=== PATIENT | male | born 1985 | race Hispanic/Latino ===

== ENCOUNTER 2016-04-17 01:27 | Emergency (ER) | payer SELFPAY ==
[2016-04-17 02:23] LABS: Hematocrit 51.7 % (35.5-45.6); Hemoglobin 17.7 gm/dl (11.8-15.2); Mean Corpuscular HGB Conc 34 % (32-34); Mean Corpuscular Hemoglobin 31 pg (28-32); Mean Corpuscular Volume 90 fl (84-94); Platelet Count 383 K/mm3 (140-440); Red Blood Count 5.75 M/mm3 (3.65-5.03); White Blood Count 7.8 K/mm3 (4.5-11.0)
[2016-04-17 02:35] LABS: Anion Gap 18 mmol/L; Blood Urea Nitrogen 8 mg/dL (9-20); Calcium 9.2 mg/dL (8.4-10.2); Carbon Dioxide 29 mmol/L (22-30); Chloride 99.2 mmol/L (98-107); Glucose 112 mg/dL (75-100); Potassium 4.3 mmol/L (3.6-5.0); Sodium 142 mmol/L (137-145)
[2016-04-17 02:42] LABS: Urine Drugs of Abuse Note Disclamer
[2016-04-17 02:51] LABS: Bilirubin,Urine NEG (Negative); Blood,Urine NEG (Negative); Ketones,Urine NEG (Negative); Leukocyte Esterase,Urine NEG (Negative); Mucus,Urine FEW /HPF; Nitrite,Urine NEG (Negative); Protein,Urine <15 mg/dL mg/dL (Negative); Urobilinogen,Urine < 2.0 mg/dL (<2.0); WBC,Urine < 1.0 /HPF (0.0-6.0)
[2016-04-17 04:52] LABS: Basophils % (Manual) 0 % (0.0-1.8); Blastocytes % (Manual) 0 %; Diff Status Complete; Platelet Estimate Consistent w Auto; RBC Morphology Normal
[2016-04-17] MEDS ORDERED: ALUM-MAG HYDROX-SIMETH 200-200-20MG/5ML PO ONE (10:51)
[2016-04-17] MEDS ORDERED: VALIUM IV ONE (10:51)
[2016-04-17] MEDS ORDERED: PEPCID IV ONE (10:51)
[2016-04-17] MEDS ORDERED: ZOFRAN IV ONE (10:51)
--- NOTE | 2016-04-17 10:52 | Emergency Department Report ---
ED General Adult HPI - General Chief complaint: Psych Stated complaint: ETOH Time Seen by Provider: 04/17/16 10:42 Source: patient, family, RN notes reviewed, old records reviewed Mode of arrival: Ambulatory Limitations: No Limitations - History of Present Illness Initial comments: This is a 31-year-old male, previously unknown to me. Apparently has a past medical history of chronic pain. Presents to the ER complaining of malaise and fatigue. He reports that he typically does not consume a lot of alcohol, but he reports that he drank a lot of alcohol this weekend. He did not fall. He did not hit his head. He complains of epigastric abdominal discomfort, nausea and vomiting and fatigue. The abdominal discomfort does not radiate to the back , arms or neck. He did not fall. He did not hit his head. He reports that he feels panicky and jittery. He is not homicidal. He is not suicidal. He reports that besides this weekend, he has not consumed alcohol for over a year. -: Gradual Location: abdomen Severity scale (0 -10): 5 Quality: aching Consistency: constant Improves with: rest Worsens with: eating Associated Symptoms: malaise, nausea/vomiting, weakness - Related Data Previous Rx's Medication Instructions Recorded Last Taken Type Famotidine [Pepcid] 20 mg PO QDAY #30 tablet 04/17/16 Unknown Rx Ondansetron [Zofran Odt] 4 mg PO QID PRN #20 tab.rapdis 04/17/16 Unknown Rx chlordiazePOXIDE [Librium] 25 mg PO Q8H PRN #10 capsule 04/17/16 Unknown Rx Allergies Allergy/AdvReac Type Severity Reaction Status Date / Time No Known Allergies Allergy Verified 04/17/16 01:54 ED Review of Systems ROS: Stated complaint: ETOH Other details as noted in HPI Constitutional: denies: fever Eyes: denies: vision change ENT: denies: epistaxis Respiratory: denies: cough Cardiovascular: denies: chest pain Gastrointestinal: abdominal pain Musculoskeletal: back pain Neurological: weakness. denies: as per HPI Psychiatric: anxiety. denies: homicidal thoughts, suicidal thoughts ED Past Medical Hx - Past Medical History Previous Medical History?: Yes Hx GERD: Yes Hx Arthritis: Yes Hx Kidney Stones: Yes Additional medical history: hypoglycemic, chronic pain - Surgical History Past Surgical History?: Yes Additional Surgical History: left hand - Social History Smoking Status: Current Every Day Smoker Substance Use Type: Alcohol - Medications Home Medications: Home Medications Medication Instructions Recorded Confirmed Last Taken Type Famotidine [Pepcid] 20 mg PO QDAY #30 tablet 04/17/16 Unknown Rx Ondansetron [Zofran Odt] 4 mg PO QID PRN #20 tab.rapdis 04/17/16 Unknown Rx chlordiazePOXIDE [Librium] 25 mg PO Q8H PRN #10 capsule 04/17/16 Unknown Rx ED Physical Exam - General Limitations: No Limitations General appearance: alert, in no apparent distress - Head Head exam: Present: atraumatic, normocephalic - Eye Eye exam: Present: normal appearance, PERRL, EOMI. Absent: nystagmus - ENT ENT exam: Present: mucous membranes moist. Absent: normal exam, normal orophraynx - Neck Neck exam: Present: normal inspection, full ROM. Absent: tenderness, meningismus - Respiratory Respiratory exam: Present: normal lung sounds bilaterally. Absent: respiratory distress, wheezes, rales, rhonchi, stridor, chest wall tenderness - Cardiovascular Cardiovascular Exam: Present: normal rhythm, tachycardia, normal heart sounds. Absent: bradycardia, systolic murmur, diastolic murmur, rubs, gallop - GI/Abdominal GI/Abdominal exam: Present: soft, normal bowel sounds. Absent: distended, tenderness, guarding, rebound, rigid, pulsatile mass - Rectal Rectal exam: Present: deferred - Extremities Exam Extremities exam: Present: normal inspection, full ROM, normal capillary refill. Absent: tenderness, pedal edema, joint swelling, calf tenderness - Back Exam Back exam: Present: normal inspection, full ROM. Absent: tenderness, CVA tenderness (R), CVA tenderness (L), muscle spasm, paraspinal tenderness, vertebral tenderness - Neurological Exam Neurological exam: Present: alert, oriented X3, normal gait, other (Extraocular movements intact. Tongue midline. No facial droop. Facial sensation intact to light touch in the V1, V2, V3 distribution bilaterally. 5 and 5 strength in 4 extremities.. Sensation is intact to light touch in 4 extremities.). Absent : motor sensory deficit - Psychiatric Psychiatric exam: Present: anxious. Absent: homicidal ideation, suicidal ideation - Skin Skin exam: Present: warm, dry, intact, normal color. Absent: rash ED Course Vital Signs 04/17/16 04/17/16 04/17/16 01:48 09:45 10:55 Temperature 98.0 F 98.1 F Pulse Rate 104 H 110 H Respiratory 18 18 20 Rate Blood Pressure 148/84 131/86 Blood Pressure 148/84 [Right] O2 Sat by Pulse 98 99 Oximetry 04/17/16 04/17/16 11:43 12:00 Temperature 98.2 F Pulse Rate 97 H Respiratory 17 Rate Blood Pressure 131/94 Blood Pressure 131/94 [Right] O2 Sat by Pulse 97 Oximetry - Reevaluation(s) Reevaluation #1: 04/17/16 11:02 Differential diagnosis: Alcohol dependency, alcohol intoxication, alcohol gastritis, pancreatitis Assessment and plan: 31-year-old male who came in intoxicated with alcohol on board, now clinically sober, walks with a steady gait. Does not meet criteria for 1013 or involuntary hold. He is not homicidal. He is not suicidal. Abdomen soft and benign, with no rebound, guarding or peritoneal signs. Most likely has alcoholic gastritis, possible early pancreatitis. We will treat him with IV fluids, Valium, Pepcid, Maalox, Zofran. His is at the bedside, and reports that she feels comfortable to take him home. We will reassess once his laboratory studies have resulted, when his tachycardia has resolved. he declines evaluation for alcohol detox therapy. There are no tongue fasciculations, there are no tremors, patient clinically not consistent with delirium tremens at this time. Reevaluation #2: 04/17/16 12:28 Patient feels improved. He is tolerating liquid feeds. His tachycardia is resolved. He will be discharged. He is instructed to exercise restraint and discretion when consuming alcohol. ED Medical Decision Making - Lab Data Result diagrams: 04/17/16 02:02 04/17/16 02:02 Vital Signs 04/17/16 04/17/16 04/17/16 01:48 09:45 10:55 Temperature 98.0 F 98.1 F Pulse Rate 104 H 110 H Respiratory 18 18 20 Rate Blood Pressure 148/84 131/86 Blood Pressure 148/84 [Right] O2 Sat by Pulse 98 99 Oximetry Labs 04/17/16 04/17/16 04/17/16 02:02 02:02 02:02 WBC 7.8 RBC 5.75 H Hgb 17.7 H Hct 51.7 H MCV 90 MCH 31 MCHC 34 RDW 13.0 L Plt Count 383 Lymph % (Auto) Pulp Operator Lymph # Pulp Operator Add Manual Diff Complete Total Counted 100 Seg Neutrophils % Pulp Operator Seg Neuts % (Manual) 28.0 L Band Neutrophils % 0 Lymphocytes % (Manual) 64.0 H Reactive Lymphs % (Man) 0 Monocytes % (Manual) 4.0 Eosinophils % (Manual) 4.0 Basophils % (Manual) 0 Metamyelocytes % 0 Myelocytes % 0 Promyelocytes % 0 Blast Cells % 0 Nucleated RBC % Not Reportable Seg Neutrophils # Man 2.2 Band Neutrophils # 0.0 Lymphocytes # (Manual) 5.0 Abs React Lymphs (Man) 0.0 Monocytes # (Manual) 0.3 Eosinophils # (Manual) 0.3 Basophils # (Manual) 0.0 Metamyelocytes # 0.0 Myelocytes # 0.0 Promyelocytes # 0.0 Blast Cells # 0.0 WBC Morphology Not Reportable Hypersegmented Neuts Not Reportable Hyposegmented Neuts Not Reportable Hypogranular Neuts Not Reportable Smudge Cells Not Reportable Toxic Granulation Not Reportable Toxic Vacuolation Not Reportable Dohle Bodies Not Reportable Pelger-Huet Anomaly Not Reportable Reema Rods Not Reportable Platelet Estimate Consistent w auto Clumped Platelets Not Reportable Plt Clumps, EDTA Not Reportable Large Platelets Not Reportable Giant Platelets Not Reportable Platelet Satelliting Not Reportable Plt Morphology Comment Not Reportable RBC Morphology Normal Dimorphic RBCs Not Reportable Polychromasia Not Reportable Hypochromasia Not Reportable Poikilocytosis Not Reportable Anisocytosis Not Reportable Microcytosis Not Reportable Macrocytosis Not Reportable Spherocytes Not Reportable Pappenheimer Bodies Not Reportable Sickle Cells Not Reportable Target Cells Not Reportable Tear Drop Cells Not Reportable Ovalocytes Not Reportable Helmet Cells Not Reportable Melo[place] Bodies Not Reportable [place] Rings Not Reportable [place]inner Cells Not Reportable Bite Cells Not Reportable Crenated Cell Not Reportable Elliptocytes Not Reportable Acanthocytes (Spur) Not Reportable Rouleaux Not Reportable Hemoglobin C Crystals Not Reportable Schistocytes Not Reportable Malaria parasites Not Reportable Mele Bodies Not Reportable Hem Pathologist Commnt No Sodium 142 Potassium 4.3 Chloride 99.2 Carbon Dioxide 29 Anion Gap 18 BUN 8 L Creatinine 0.8 Estimated GFR > 60 BUN/Creatinine Ratio 10.00 Glucose 112 H Calcium 9.2 Urine Color Urine Turbidity Urine pH Ur Specific [place] Urine Protein Urine Glucose (UA) Urine Ketones Urine Blood Urine Nitrite Urine Bilirubin Urine Urobilinogen Ur Leukocyte Esterase Urine WBC (Auto) Urine RBC (Auto) U Epithel Cells (Auto) Urine Mucus Urine Opiates Screen Urine Methadone Screen Ur Barbiturates Screen Ur Phencyclidine Scrn Ur Amphetamines Screen U Benzodiazepines Scrn Urine Cocaine Screen U Marijuana (THC) Screen Drugs of Abuse Note Plasma/Serum Alcohol 0.31 H 04/17/16 04/17/16 02:35 02:35 WBC RBC Hgb Hct MCV MCH MCHC RDW Plt Count Lymph % (Auto) Lymph # Add Manual Diff Total Counted Seg Neutrophils % Seg Neuts % (Manual) Band Neutrophils % Lymphocytes % (Manual) Reactive Lymphs % (Man) Monocytes % (Manual) Eosinophils % (Manual) Basophils % (Manual) Metamyelocytes % Myelocytes % Promyelocytes % Blast Cells % Nucleated RBC % Seg Neutrophils # Man Band Neutrophils # Lymphocytes # (Manual) Abs React Lymphs (Man) Monocytes # (Manual) Eosinophils # (Manual) Basophils # (Manual) Metamyelocytes # Myelocytes # Promyelocytes # Blast Cells # WBC Morphology Hypersegmented Neuts Hyposegmented Neuts Hypogranular Neuts Smudge Cells Toxic Granulation Toxic Vacuolation Dohle Bodies Pelger-Huet Anomaly Reema Rods Platelet Estimate Clumped Platelets Plt Clumps, EDTA Large Platelets Giant Platelets Platelet Satelliting Plt Morphology Comment RBC Morphology Dimorphic RBCs Polychromasia Hypochromasia Poikilocytosis Anisocytosis Microcytosis Macrocytosis Spherocytes Pappenheimer Bodies Sickle Cells Target Cells Tear Drop Cells Ovalocytes Helmet Cells Melo[place] Bodies [place] Rings Gwinner Cells Bite Cells Crenated Cell Elliptocytes Acanthocytes (Spur) Rouleaux Hemoglobin C Crystals Schistocytes Malaria parasites Mele Bodies Hem Pathologist Commnt Sodium Potassium Chloride Carbon Dioxide Anion Gap BUN Creatinine Estimated GFR BUN/Creatinine Ratio Glucose Calcium Urine Color Yellow Urine Turbidity Clear Urine pH 6.0 Ur Specific [place] 1.012 Urine Protein <15 mg/dl Urine Glucose (UA) Neg Urine Ketones Neg Urine Blood Neg Urine Nitrite Neg Urine Bilirubin Neg Urine Urobilinogen < 2.0 Ur Leukocyte Esterase Neg Urine WBC (Auto) < 1.0 Urine RBC (Auto) 1.0 U Epithel Cells (Auto) < 1.0 Urine Mucus Few Urine Opiates Screen Presumptive negative Urine Methadone Screen Presumptive negative Ur Barbiturates Screen Presumptive negative Ur Phencyclidine Scrn Presumptive negative Ur Amphetamines Screen Presumptive negative U Benzodiazepines Scrn Presumptive negative Urine Cocaine Screen Presumptive negative U Marijuana (THC) Screen Presumptive negative Drugs of Abuse Note Disclamer Plasma/Serum Alcohol Critical care attestation.: If time is entered above; I have spent that time in minutes in the direct care of this critically ill patient, excluding procedure time. ED Disposition Clinical Impression: Alcohol intoxication Disposition: DISCHARGED TO HOME OR SELFCARE Is pt being admited?: No Does the pt Need Aspirin: No Condition: Stable Instructions: Alcohol Intoxication (ED), Abuse of Alcohol (ED) Additional Instructions: Be mindful when consuming alcohol. Follow-up with the primary care doctor within the next week to 2 weeks. Take the medications as directed. Take Librium if he experienced sensation of withdrawal, intractable nausea or vomiting, or the tremors. Long-term complications of alcohol include GI bleed, stroke, disability, loss of quality of life. Return to the ER right away with fevers or chills, chest pain or shortness of breath, worsened pain, inability to tolerate liquid feeds. Dr. Thacker's local primary care doctor. Referrals: PRIMARY CAREMD [Primary Care Provider] - 3-5 Days ALANNAH THACKER MD [Staff Physician] - 3-5 Days Forms: Work/School Release Form(ED)
[2016-04-17] MEDS ORDERED: VITAMIN B-1 100 MG, FOLVITE 1 MG, INFUVITE 10 ML in NACL 0.9% 1000 ML 1,000 ML IV ONE (11:30)
[2016-04-17 12:00] VITALS: BP 131/94
== END 2016-04-17 13:24 | disposition home or self-care (01) ==
LOC: ED 01:27
DX: F10.129 Alcohol abuse with intoxication, unspecified (principal); K21.9 Gastro-esophageal reflux disease without esophagitis; M19.90 Unspecified osteoarthritis, unspecified site; G89.29 Other chronic pain; F17.200 Nicotine dependence, unspecified, uncomplicated
CPT/HCPCS: 36415; 80048; 81001; 83690; 85007; 85025; 96365; 96375; 99284; G0479; G0480; J2405; J3360; J3411; J7030; 80307; 80320

== ENCOUNTER 2016-10-11 13:35 | Emergency (ER) | payer SELFPAY ==
--- NOTE | 2016-10-11 14:07 | XRay Report ---
Right hand: Injury, pain. There is a healed fracture in the mid fifth metacarpal with slight dorsal bowing. The visualized bones are not otherwise remarkable. The joints are aligned and unremarkable. There may be slight nonspecific dorsal swelling. No prior for comparison. Impression: Questionable mild dorsal swelling. No other evidence of acute finding.
[2016-10-11] MEDS ORDERED: ULTRAM PO ONE (14:49)
--- NOTE | 2016-10-11 14:49 | Emergency Department Report ---
ED Upper Extremity Inj HPI - General Chief Complaint: Extremity Injury, Upper Stated Complaint: BROKEN HAND Time Seen by Provider: 10/11/16 14:44 Source: patient Mode of arrival: Ambulatory Limitations: No Limitations - History of Present Illness Initial Comments: This is a 31-year-old male well-nourished with nontoxic or ill in appearance that presents with right hand pain status post punching a tree yesterday around 3 PM. Patient stated he was working on his car fixing it and got really mad and punched a tree with his right fist due to anger. Patient denies any numbness, tingling, chest pain, short of breath, stiff neck, headache, blurry vision, fever or chills. Associated symptoms includes aching with swelling to the extremity. Patient rates pain as 8 out of 10. Patient stated has full range of motion that is limited due to pain. Patient's is currently at bedside. Denies any drug allergies. Denies past medical history. MD Complaint: Injury to:: left, right -: Gradual, days(s) (1) Other Extremity Injury: Hand: Right Other Injuries: none Place: home Severity scale (0 -10): 8 Improves With: none Worsens With: none Context: direct blow Associated Symptoms: denies other symptoms. denies: weakness, numbness, neck pain, suspects foreign body, nausea/vomiting, heard/felt popping sensat - Related Data Previous Rx's Medication Instructions Recorded Last Taken Type Famotidine [Pepcid] 20 mg PO QDAY #30 tablet 04/17/16 Unknown Rx Ondansetron [Zofran Odt] 4 mg PO QID PRN #20 tab.rapdis 04/17/16 Unknown Rx chlordiazePOXIDE [Librium] 25 mg PO Q8H PRN #10 capsule 04/17/16 Unknown Rx Ibuprofen [Motrin 600 MG tab] 600 mg PO Q8H PRN #20 tablet 10/11/16 Unknown Rx Allergies Allergy/AdvReac Type Severity Reaction Status Date / Time No Known Allergies Allergy Verified 04/17/16 01:54 ED Review of Systems ROS: Stated complaint: BROKEN HAND Other details as noted in HPI Constitutional: denies: chills, fever Eyes: denies: eye pain, eye discharge, vision change ENT: denies: ear pain, throat pain Respiratory: denies: cough, shortness of breath, wheezing Cardiovascular: denies: chest pain, palpitations Endocrine: no symptoms reported Gastrointestinal: denies: abdominal pain, nausea, diarrhea Genitourinary: denies: urgency, dysuria Musculoskeletal: denies: back pain, joint swelling, arthralgia Skin: denies: rash, lesions Neurological: denies: headache, weakness, paresthesias Psychiatric: denies: anxiety, depression Hematological/Lymphatic: denies: easy bleeding, easy bruising ED Past Medical Hx - Past Medical History Previous Medical History?: Yes Hx GERD: Yes Hx Arthritis: Yes Hx Kidney Stones: Yes Additional medical history: hypoglycemic, chronic pain - Surgical History Past Surgical History?: Yes Additional Surgical History: left hand - Social History Smoking Status: Current Every Day Smoker Substance Use Type: Alcohol - Medications Home Medications: Home Medications Medication Instructions Recorded Confirmed Last Taken Type Famotidine [Pepcid] 20 mg PO QDAY #30 tablet 04/17/16 Unknown Rx Ondansetron [Zofran Odt] 4 mg PO QID PRN #20 tab.rapdis 04/17/16 Unknown Rx chlordiazePOXIDE [Librium] 25 mg PO Q8H PRN #10 capsule 04/17/16 Unknown Rx Ibuprofen [Motrin 600 MG tab] 600 mg PO Q8H PRN #20 tablet 10/11/16 Unknown Rx ED Physical Exam - General Limitations: No Limitations General appearance: alert, in no apparent distress - Head Head exam: Present: atraumatic, normocephalic, normal inspection - Eye Eye exam: Present: normal appearance, PERRL, EOMI. Absent: scleral icterus, conjunctival injection, nystagmus, periorbital swelling, periorbital tenderness Pupils: Present: normal accommodation - ENT ENT exam: Present: normal exam, normal orophraynx, mucous membranes moist, TM's normal bilaterally, normal external ear exam - Neck Neck exam: Present: normal inspection, full ROM. Absent: tenderness, meningismus, lymphadenopathy, thyromegaly - Respiratory Respiratory exam: Present: normal lung sounds bilaterally. Absent: respiratory distress, wheezes, rales, rhonchi, stridor, chest wall tenderness, accessory muscle use, decreased breath sounds, prolonged expiratory - Cardiovascular Cardiovascular Exam: Present: regular rate, normal rhythm, normal heart sounds. Absent: bradycardia, tachycardia, irregular rhythm, systolic murmur, diastolic murmur, rubs, gallop - GI/Abdominal GI/Abdominal exam: Present: soft, normal bowel sounds. Absent: distended, tenderness, guarding, rebound, rigid, diminished bowel sounds - Rectal Rectal exam: Present: deferred - Extremities Exam Extremities exam: Present: normal inspection, full ROM, normal capillary refill. Absent: tenderness, pedal edema, joint swelling, calf tenderness - Expanded Upper Extremity Exam Right General: Present: normal inspection Shoulder Exam: Present: normal inspection, full ROM. Absent: tenderness, swelling, abrasion, laceration, ecchymosis, deformity, crepidus, dislocation, erythema, tenderness over AC joint Upper Arm exam: Present: normal inspection, full ROM. Absent: tenderness, swelling, abrasion, laceration, ecchymosis, deformity, crepidus, dislocation, erythema Elbow exam: Present: normal inspection, full ROM. Absent: tenderness, swelling , abrasion, laceration, ecchymosis, deformity, crepidus, dislocation, erythema, effusion, pain w/ pronation/supination, tenderness over radial head Forearm Wrist exam: Present: normal inspection, full ROM. Absent: tenderness, swelling, abrasion, laceration, ecchymosis, deformity, crepidus, dislocation, erythema, tenderness over anatomical snuff box, pain with axial thumb loading Hand Wrist exam: Present: normal inspection, full ROM, tenderness, swelling. Absent: abrasion, laceration, ecchymosis, deformity, crepidus, dislocation, erythema, amputation, nail avulsion, subungual hematoma Hand L/R Back: 1 - swelling with tenderness Neuro motor exam: Present: wrist extension intact, thumb opposition intact, thumb IP flexion intact, thumb adduction intact, fingers 2-5 abduction intact Neurosensory exam: Present: 2-point discrimination, radial nerve intact, ulnar nerve intact, median nerve intact Vascular: Present: vascular compromise, normal capillary refill, radial pulse, brachial pulse, ulnar pulse - Back Exam Back exam: Present: normal inspection, full ROM. Absent: tenderness, CVA tenderness (R), CVA tenderness (L), muscle spasm, paraspinal tenderness, vertebral tenderness, rash noted - Neurological Exam Neurological exam: Present: alert, oriented X3, CN II-XII intact, normal gait, reflexes normal - Psychiatric Psychiatric exam: Present: normal affect, normal mood - Skin Skin exam: Present: warm, dry, intact, normal color. Absent: rash ED Course Vital Signs 10/11/16 13:43 Temperature 98.8 F Pulse Rate 100 H Respiratory 18 Rate Blood Pressure 142/105 O2 Sat by Pulse 96 Oximetry - Reevaluation(s) Reevaluation #1: 10/11/16 15:07 Patient is sitting on the chair with at side. No signs of distress noted. ED Medical Decision Making - Medical Decision Making Ed course: This is a 31-year-old male that presents with right hand pain s/p direct blow 1- patient was examined by myself. Xray of hand has been obtained with normal findings and no fx noted by Dr. Dc. ? mid dorsal swelling noted of hand. 2- patient received Ultram 50 mg in the ED. Patient was instructed not to operate any machinery after discharge due to sedation/drowsiness 3- patient was instructed to Rice therapy 4- Jax wrap of right hand has been applied in the ED 5- patient received ibuprofen at the time of discharge. 6- patient was instructed to follow-up with Dr. Kruger or another orthopedic doctor in 24 hours or if symptoms worsen and unbearable return to emergency room as soon as possible 7- at time time of discharge, the patient does not seem toxic or ill in appearance. No acute signs of distress noted. Patient agrees to discharge treatment plan of care. No further questions noted by the patient. Critical care attestation.: If time is entered above; I have spent that time in minutes in the direct care of this critically ill patient, excluding procedure time. ED Disposition Clinical Impression: Hand pain, right Disposition: DC-01 TO HOME OR SELFCARE Is pt being admited?: No Does the pt Need Aspirin: No Condition: Stable Instructions: Ibuprofen (By mouth), RICE Therapy (ED) Additional Instructions: Follow-up with Dr. Kruger or another orthopedic doctor in 24 hours or if symptoms worsen and unbearable return to emergency room as soon as possible Take ibuprofen for pain as needed. Rest, elevate, and ice extremity Prescriptions: Ibuprofen [Motrin 600 MG tab] 600 mg PO Q8H PRN #20 tablet PRN Reason: Pain Referrals: PRIMARY CAREMD [Primary Care Provider] - 3-5 Days [facility] [Outside] - 3-5 Days [facility] [Outside] - 3-5 Days OZZIE KRUGER MD [Staff Physician] - 24 Hours Forms: Work/School Release Form(ED)
[2016-10-11 15:56] VITALS: BP 133/84
== END 2016-10-11 15:56 | disposition home or self-care (01) ==
LOC: ED 13:35
DX: M79.641 Pain in right hand (principal); K21.9 Gastro-esophageal reflux disease without esophagitis; F17.200 Nicotine dependence, unspecified, uncomplicated; W22.09XA Striking against other stationary object, initial encounter; Y93.9 Activity, unspecified; Y92.9 Unspecified place or not applicable; Y99.9 Unspecified external cause status
CPT/HCPCS: 99284

== ENCOUNTER 2017-04-30 14:18 | Emergency (ER) | payer SELFPAY ==
[2017-04-30 14:44] VITALS: BP 135/83
== END 2017-04-30 14:45 | disposition left against medical advice (07) ==
LOC: ED 14:18
DX: R07.9 Chest pain, unspecified (principal); Z53.21 Procedure and treatment not carried out due to patient leaving prior to being seen by health care provider
CPT/HCPCS: 93005; 93010